=== PATIENT | female | born 1980 | race Caucasian/White ===

== ENCOUNTER 2020-08-09 08:00 | Outpatient (CLI) | payer BC, OTHER ==
[2020-08-09 12:16] LABS: ALBUMIN/GLOBULIN RATIO 1.7 (1.0-2.2); ALKALINE PHOSPHATASE 30 IU/L (42-121); ALT ALANINE AMINOTRANSFERASE 26 IU/L (10-60); AST ASPARTATE AMINOTRANSFERASE 18 IU/L (10-42); BASOPHILS % (AUTO) 0.5 %; BILIRUBIN,TOTAL 0.6 mg/dL (0.2-1.0); BUN - BLOOD UREA NITROGEN 17 mg/dL (6-20); CALCIUM 9.6 mg/dL (8.5-10.3); CARBON DIOXIDE - CO2 25 mmol/L (21-32); CHLORIDE 102 mmol/L (101-111); CHOL/HDL RATIO 4.1 (<4.4); CHOLESTEROL 357 mg/dL; CREATININE 0.8 mg/dL (0.4-1.0); EOSINOPHILS # (AUTO) 0.2 10^3/uL (0.0-0.7); EOSINOPHILS % (AUTO) 2.5 %; GLUCOSE 105 mg/dL (70-100); HDL CHOLESTEROL 88 mg/dL; LDL CHOLESTEROL,CALCULATED 260 mg/dL; LYMPHOCYTES # (AUTO) 2.2 10^3/uL (1.5-3.5); LYMPHOCYTES % (AUTO) 34.3 %; MEAN CORPUSCULAR HEMOGLOBIN 30.7 pg (27.0-31.0); MEAN CORPUSCULAR HGB CONC 32.2 g/dL (32.0-36.0); MEAN CORPUSCULAR VOLUME 95.3 fL (81.0-99.0); MEAN PLATELET VOLUME 10.4 fL (7.9-10.8); MONOCYTES # (AUTO) 0.5 10^3/uL (0.0-1.0); MONOCYTES % (AUTO) 7.8 %; NEUTROPHILS # (AUTO) 3.5 10^3/uL (1.5-6.6); NEUTROPHILS % (AUTO) 54.7 %; PLT - PLATELET COUNT 317 10^3/uL (130-450); RED BLOOD COUNT 4.24 10^6/uL (4.20-5.40); RED CELL DISTRIBUTION WIDTH 13.2 % (12.0-15.0); VLDL CHOLESTEROL 9 mg/dL; WHITE BLOOD COUNT 6.4 x10^3/uL (4.8-10.8)
== END 2020-08-09 08:01 | disposition home or self-care (01) ==
LOC: LAB.WCP 08:00
PROVIDERS: ATTEND Nurse Practitioner Family
DX: I10 Essential (primary) hypertension (principal); E78.5 Hyperlipidemia, unspecified; D49.2 Neoplasm of unspecified behavior of bone, soft tissue, and skin
CPT/HCPCS: 36415; 80053; 80061; 83721; 84443; 85025

== ENCOUNTER 2020-08-21 17:59 | Outpatient (CLI) | payer OTHER ==
--- NOTE | 2020-08-22 09:35 | Ultrasound Report ---
PROCEDURE: Pelvic w/Transvaginal INDICATIONS: PELVIC PAIN TECHNIQUE: Real-time scanning was performed of the pelvic organs, with image documentation. Additional endovagi nal scanning was necessary due to incomplete visualization of the adnexal and endometrial structures by transabdominal scanning. COMPARISON: None. FINDINGS: No pathologic free abdominal or pelvic fluid. Uterus: Uterus is anteverted and normal in size at 8.0 x 3.3 x 5.1 cm. The endometrium measures 7 m m in combined thickness. Slight arcuate uterine morphology. No myometrial mass. A few small nabothia n cysts are present in the cervix. Ovaries: The right ovary measures 4.6 x 2.1 x 2.5 cm for a volume of 12 cc. The left ovary measures 2.2 x 1.8 x 1.7 cm for a volume of 3.8 cc. The right ovary contains a round, thin-walled, partially e xophytic, hypoechoic mass measuring 2.0 x 2.0 x 2.2 cm. Nonpulsatile color flow present within the ma ss. IMPRESSION: 1. Normal uterus and left ovary. 2. 2.2 cm hypoechoic right ovarian mass suggestive of hemorrhagic corpus luteum, endometrioma, less l ikely atypical dermoid. Follow-up in 6-8 weeks at a different point in the patient's menstrual cycle is recommended. Reviewed by: Lary Santacruz MD on 08/22/2020 9:33 AM PST Approved by: Lary Santacruz MD on 08/22/2020 9:33 AM PST Station ID: [id number]
== END 2020-08-21 18:00 | disposition home or self-care (01) ==
LOC: DI 17:59
PROVIDERS: ATTEND Nurse Practitioner Family
DX: N83.9 Noninflammatory disorder of ovary, fallopian tube and broad ligament, unspecified (principal)

== ENCOUNTER 2023-01-25 08:50 | Outpatient (CLI) | payer OTHER ==
[2023-01-25 09:22] LABS: BASOPHILS % (AUTO) 0.5 %; EOSINOPHILS # (AUTO) 0.2 10^3/uL (0.0-0.7); EOSINOPHILS % (AUTO) 4.2 %; HCT - HEMATOCRIT 39.1 % (37.0-47.0); HGB - HEMOGLOBIN 12.7 g/dL (12.0-16.0); LYMPHOCYTES # (AUTO) 2.1 10^3/uL (1.5-3.5); LYMPHOCYTES % (AUTO) 36.8 %; MEAN CORPUSCULAR HEMOGLOBIN 30.1 pg (27.0-31.0); MEAN CORPUSCULAR HGB CONC 32.5 g/dL (32.0-36.0); MEAN CORPUSCULAR VOLUME 92.7 fL (81.0-99.0); MEAN PLATELET VOLUME 9.8 fL (7.9-10.8); MONOCYTES # (AUTO) 0.5 10^3/uL (0.0-1.0); MONOCYTES % (AUTO) 8.4 %; NEUTROPHILS # (AUTO) 2.9 10^3/uL (1.5-6.6); NEUTROPHILS % (AUTO) 50.1 %; PLT - PLATELET COUNT 314 10^3/uL (130-450); RED BLOOD COUNT 4.22 10^6/uL (4.20-5.40); RED CELL DISTRIBUTION WIDTH 13.2 % (12.0-15.0); WHITE BLOOD COUNT 5.7 x10^3/uL (4.8-10.8)
[2023-01-25 09:36] LABS: ALBUMIN 4.4 g/dL (3.2-5.5); ALBUMIN/GLOBULIN RATIO 1.5 (1.0-2.2); ALKALINE PHOSPHATASE 51 IU/L (42-121); ALT ALANINE AMINOTRANSFERASE 14 IU/L (10-60); AMYLASE 30 U/L (28-100); AST ASPARTATE AMINOTRANSFERASE 13 IU/L (10-42); BILIRUBIN,TOTAL 0.4 mg/dL (0.2-1.0); BUN - BLOOD UREA NITROGEN 7 mg/dL (6-20); CALCIUM 9.4 mg/dL (8.5-10.3); CARBON DIOXIDE - CO2 26 mmol/L (21-32); CHLORIDE 105 mmol/L (101-111); CHOL/HDL RATIO 3.3 (<4.4); CHOLESTEROL 211 mg/dL; CREATININE 0.7 mg/dL (0.6-1.3); GFR - MDRD 91 (>89); GLUCOSE 99 mg/dL (74-104); HDL CHOLESTEROL 63 mg/dL; LDL CHOLESTEROL,CALCULATED 124 mg/dL; LIPASE 14 U/L (11-82); POTASSIUM 3.8 mmol/L (3.5-4.5); SODIUM 136 mmol/L (135-145); TOTAL PROTEIN 7.4 g/dL (6.4-8.9); TRIGLYCERIDES 120 mg/dL (48-352); VLDL CHOLESTEROL 24 mg/dL
== END 2023-01-25 08:51 | disposition home or self-care (01) ==
LOC: LAB 08:50
PROVIDERS: ATTEND Registered Nurse
DX: E78.00 Pure hypercholesterolemia, unspecified (principal); M54.6 Pain in thoracic spine
CPT/HCPCS: 36415; 80053; 80061; 82150; 83690; 83721; 85025

== ENCOUNTER 2023-01-29 07:35 | Outpatient (CLI) | payer OTHER ==
--- NOTE | 2023-01-29 11:30 | CT Report ---
PROCEDURE: ABDOMEN/PELVIS W INDICATIONS: RIGHT FLANK PAIN CONTRAST: 100ml omni 300 TECHNIQUE: After the administration of oral and intravenous contrast, 5 mm thick sections acquired from the diap hragms to the symphysis. 5 mm thick coronal and sagittal reformats were acquired. For radiation dos e reduction, the following was used: automated exposure control, adjustment of mA and/or kV accordin g to patient size. COMPARISON: CT 01/11/2023 FINDINGS: Image quality: Excellent. Lung bases and heart: Unremarkable. Liver: Subcentimeter hypoattenuating lesion in segment 6 of the liver, too small to characterize by C T (series 2, image 34). Gallbladder and biliary tree: No radiopaque stones or wall thickening. No biliary dilation. Spleen: No splenomegaly. Pancreas: No pancreatic ductal dilation. Adrenals: No adrenal nodule. Kidneys and ureters: No hydronephrosis. No renal cystic lesion which requires follow up. No solid mas s. Bowel and peritoneum: No bowel distension. No pathologic free fluid. Lymph nodes: No central or retroperitoneal adenopathy. Vessels: No infrarenal aortic aneurysm. PELVIS Reproductive organs: IUD within the central uterus. Bladder: No abnormal wall thickening, accounting for underdistension. Pelvic lymph nodes: No pelvic adenopathy by size criteria. Bones: No aggressive osseous abnormality. Other: No significant ventral or inguinal hernia. IMPRESSION: No findings to explain the patient's right flank pain. No nephrolithiasis. No hydronephrosis. Symmetr ic ovaries. Subcentimeter hypoattenuating lesion in segment 6 of the liver, too small to characterize by CT but p robably a small cyst. Reviewed by: Nam Zarate on 01/29/2023 11:28 AM PDT Approved by: Nam Zarate on 01/29/2023 11:28 AM PDT Station ID: [id number]
[2023-01-29] MEDS ORDERED: iohexoL-300 100 ML VIAL IVP ONE (12:02)
[2023-01-29] MEDS ORDERED: BARIUM SULFATE 450 ML BOTTLE PO ONE (12:02)
== END 2023-01-29 07:36 | disposition home or self-care (01) ==
LOC: DI 07:35
PROVIDERS: ATTEND Urology
DX: K76.9 Liver disease, unspecified (principal); R10.9 Unspecified abdominal pain; R31.21 Asymptomatic microscopic hematuria
CPT/HCPCS: 74177; A9270; Q9967

== ENCOUNTER 2023-02-09 13:32 | Outpatient (CLI) | payer OTHER ==
--- NOTE | 2023-02-09 19:35 | XRAY Report ---
PROCEDURE: Thoracic Spine 2 View INDICATIONS: ACUTE RIGHT SIDED THORACIC BACK PAIN TECHNIQUE: 2 views of the thoracic spine were acquired. COMPARISON: None. FINDINGS: Bones: No fractures or dislocations. No suspicious bony lesions. 12 pairs of ribs are noted, and a ppear intact where visualized. Soft tissues: No paravertebral stripe thickening. IMPRESSION: Unremarkable thoracic spine radiographs Reviewed by: Yanick Griffin MD on 02/09/2023 6:33 PM AKDT Approved by: Yanick Griffin MD on 02/09/2023 6:33 PM AKDT Station ID: [id number]
--- NOTE | 2023-02-09 19:36 | XRAY Report ---
PROCEDURE: Lumbar Spine 2 View INDICATIONS: ACUTE RIGHT SIDED THORACIC BACK PAIN TECHNIQUE: 2 views of the lumbar spine were acquired. COMPARISON: None. FINDINGS: Bones: 5 dif-yts-vivlflo vertebrae are present. There is normal bony alignment. No vertebral body compression fractures. No suspicious bony lesions. Disc spaces narrowing noted in the lower lumbar spine with hypertrophic facet joints and grade 1 ante rior spondylolisthesis at L3-4 Soft tissues: Overlying bowel gas pattern is normal. No suspicious soft tissue calcifications. 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
== END 2023-02-09 13:33 | disposition home or self-care (01) ==
LOC: DI 13:32
PROVIDERS: ATTEND Registered Nurse
DX: M47.816 Spondylosis without myelopathy or radiculopathy, lumbar region (principal); M51.36 Other intervertebral disc degeneration, lumbar region

== ENCOUNTER 2023-03-26 07:28 | Day surgery (SDC) | payer OTHER ==
[~2023-03-26 07:28] MED LIST: BUPIVACAINE 0.5% PF 10 ML VIAL ONE
[2023-03-26] MEDS ORDERED: LACTATED RINGERS 1,000 ML IV ONE ×2 (07:37→11:10)
[2023-03-26] MEDS ORDERED: ceFAZolin 2 GM VIAL ONE (07:40)
[2023-03-26 08:09] LABS: HCG UR QUAL NEGATIVE
[2023-03-26] MEDS ORDERED: fentaNYL 100 MCG/2 ML VIAL ONE ×2 (08:29→10:15)
[2023-03-26] MEDS ORDERED: MIDAZOLAM 2 MG/2 ML VIAL ONE (08:29)
[2023-03-26] MEDS ORDERED: ROCURONIUM 50 MG/5 ML VIAL ONE ×2 (08:30→10:33)
[2023-03-26] MEDS ORDERED: LIDOCAINE-PF 2% 10 ML AMP SUBQ ONE (08:30)
[2023-03-26] MEDS ORDERED: PROPOFOL 200 MG/20 ML VIAL IVP ONE (08:30)
[2023-03-26 08:37] LABS: ALBUMIN 4.4 g/dL (3.2-5.5); ALBUMIN/GLOBULIN RATIO 1.8 (1.0-2.2); BILIRUBIN,TOTAL 0.5 mg/dL (0.2-1.0); CALCIUM 9.4 mg/dL (8.5-10.3); CREATININE 0.6 mg/dL (0.6-1.3); POTASSIUM 3.8 mmol/L (3.5-4.5); TOTAL PROTEIN 6.9 g/dL (6.4-8.9)
[2023-03-26] MEDS ORDERED: METOCLOPRAMIDE 10 MG/2 ML VIAL IVP PRN (08:37)
[2023-03-26] MEDS ORDERED: NALOXONE 0.4 MG/ML VIAL IVP PRN (08:37)
[2023-03-26] MEDS ORDERED: HYDROmorphone 0.5 MG/0.5 ML SYRINGE IVP PRN (08:37)
[2023-03-26] MEDS ORDERED: fentaNYL 100 MCG/2 ML VIAL IVP PRN (08:37)
[2023-03-26] MEDS ORDERED: ONDANSETRON 4 MG/2 ML VIAL IVP PRN (08:37)
[2023-03-26] MEDS ORDERED: MORPHINE 2 MG/ML CARPUJECT IVP PRN (08:37)
[2023-03-26] MEDS ORDERED: ATROPINE ABBOJECT 1 MG/10 ML SYRINGE IVP PRN (08:37)
[2023-03-26] MEDS ORDERED: ePHEDrine 50 MG/ML VIAL IVP PRN (08:37)
--- NOTE | 2023-03-26 08:37 | ANESTHESIA ---
Pre-Anesthesia VS, & Labs - Diagnosis acalculus cholecystitis - Procedure laparoscpic cholecystectomy Vital Signs: Temp Pulse Resp BP Pulse Ox O2 Flow Rate 36.1 C L 88 18 138/90 H 98 03/26/23 07:48 03/26/23 07:48 03/26/23 07:48 03/26/23 07:48 03/26/23 07:48 Height: 5 ft 8 in Weight (kg): 103.1 kg Body Mass Index: 34.5 BMI Classification: Obese - NPO >8 hours - Is Patient ?: No - Lab Results Lab results reviewed: Yes Home Medications and Allergies Home Medications: Ambulatory Orders Atorvastatin [Lipitor] 10 mg PO DAILY 03/21/23 Sertraline [Zoloft] 50 mg PO DAILY 03/21/23 traMADol [Ultram] 50 mg PO Q4-6H 03/21/23 Atorvastatin [Lipitor] 10 mg PO DAILY 03/21/23 Sertraline [Zoloft] 50 mg PO DAILY 03/21/23 traMADol [Ultram] 50 mg PO Q4-6H 03/21/23 Allergies/Adverse Reactions: Allergies Allergy/AdvReac Type Severity Reaction Status Date / Time heparin Allergy migraine, Verified 03/21/23 15:17 vomiting Anes History & Medical History - Anesthetic History Anesthesia Complications: reports: No previous complications Family history of Anesthesia Complications: Denies Family history of Malignant Hyperthermia: Denies - Medical History Cardiovascular: reports: High cholesterol, Deep vein thrombosis (L leg) Pulmonary: reports: None Gastrointestinal: reports: Cholelithiasis Urinary: reports: None Musculoskeletal: reports: None Endocrine/Autoimmune: reports: None Skin: reports: Other Psychosocial: reports: No issues indicated History of Cancer?: No - Surgical History Dermatologic: reports: Skin cancer surgery Exam General: Alert, Oriented x3, Cooperative Dental: WNL Mouth Openin Fingerbreadth Neck Mobility: Normal Mallampati classification: II Thyromental Distance: 4-6 cm Respiratory: Lungs clear, Normal breath sounds, No respiratory distress Cardiovascular: Regular rate Neurological: Normal speech Mental/Cognitive Status: Alert/Oriented X3, Normal for patient Cognitive Status: Within normal limits Plan Anesthesia Type: General Consent for Procedure(s) Verified and Reviewed: Yes Code Status: Attempt Resuscitation ASA classification: 2-Mild systemic disease Is this case an emergency?: No
--- NOTE | 2023-03-26 08:40 | ANESTHESIA ---
Pre-Anesthesia VS, & Labs Vital Signs: Temp Pulse Resp BP Pulse Ox O2 Flow Rate 36.1 C L 88 18 138/90 H 98 03/26/23 07:48 03/26/23 07:48 03/26/23 07:48 03/26/23 07:48 03/26/23 07:48 Height: 5 ft 8 in Weight (kg): 103.1 kg Body Mass Index: 34.5 BMI Classification: Obese Home Medications and Allergies Home Medications: Ambulatory Orders Atorvastatin [Lipitor] 10 mg PO DAILY 03/21/23 Sertraline [Zoloft] 50 mg PO DAILY 03/21/23 traMADol [Ultram] 50 mg PO Q4-6H 03/21/23 Atorvastatin [Lipitor] 10 mg PO DAILY 03/21/23 Sertraline [Zoloft] 50 mg PO DAILY 03/21/23 traMADol [Ultram] 50 mg PO Q4-6H 03/21/23 Allergies/Adverse Reactions: Allergies Allergy/AdvReac Type Severity Reaction Status Date / Time heparin Allergy migraine, Verified 03/21/23 15:17 vomiting Anes History & Medical History - Medical History Cardiovascular: reports: High cholesterol, Deep vein thrombosis Pulmonary: reports: None Gastrointestinal: reports: Cholelithiasis Urinary: reports: None Musculoskeletal: reports: None Endocrine/Autoimmune: reports: None Skin: reports: Other - Surgical History Dermatologic: reports: Skin cancer surgery
[2023-03-26] MEDS ORDERED: LACTATED RINGERS 1,000 ML IV SCH (09:00)
[2023-03-26] MEDS ORDERED: GLYCOPYRROLATE 1 MG/5 ML VIAL ONE (09:46)
[2023-03-26] MEDS ORDERED: BUPIVACAINE 0.5% PF 30 ML VIAL SUBQ ONE (09:51)
[2023-03-26] MEDS ORDERED: DEXAMETHASONE 4 MG/ML VIAL ONE (09:58)
[2023-03-26] MEDS ORDERED: ONDANSETRON 4 MG/2 ML VIAL ONE (09:58)
[2023-03-26] MEDS ORDERED: ACETAMINOPHEN 1,000 MG/100 ML 1,000 MG/100 ML BAG IV ONE (09:59)
[2023-03-26] MEDS ORDERED: KETOROLAC 30 MG/ML VIAL ONE (10:41)
[2023-03-26] MEDS ORDERED: SUGAMMADEX 200 MG/2 ML VIAL IVP ONE (10:43)
[2023-03-26] MEDS ORDERED: HYDROmorphone 1 MG/ML CARPUJECT ONE (11:22)
[2023-03-26] MEDS: HYDROmorphone 1 MG/ML CARPUJECT ONE ×2 (11:33→11:43)
--- NOTE | 2023-03-26 11:35 | OPERATIVE REPORT ---
Operative Report - General Procedure Date: 03/26/23 Planned Procedure: Laparoscopic cholecystectomy Pre-Op Diagnosis: Acalculus cholecystitis Procedure Performed: Calculus cholecystitis (there were stones when I opened the gallbladder) Post Op Diagnosis: Calculus cholecystitis - Procedure Note Primary Surgeon: Josef Meade MD Anesthesia Provider: Fermín Rosas CRNA Anesthesia Technique: General ET tube, Local (30 mL of half percent Marcaine plain) IV Fluids (mL): 1,400 Estimated Blood Loss (mL): 10 Drain/Tube Type: Other (None.) Indications: Persistent and increasingly symptomatic right upper quadrant pain Complications: Small hepatic tear on retraction of gallbladder (photographed) - Other Other Information/Narrative: After verbal and written informed consent was obtained detailing the operation, the alternatives to the operation including no operation, risks of infection, bleeding requiring transfusion with its risks, nerve injury, and and after I met with the patient confirming the surgery, the patient was brought to the operative suite and placed supine on the operating table. Great care was taken to avoid pressure points to prevent pressure necrosis or nerve injury. Monitoring devices were applied along with TEDs and pneumatic compressive stockings (to prevent DVT). The patient received preoperative antibiotics for surgical prophylaxis. Fermín Rosas CRNA sedated and anesthetized the patient for the entire procedure. The patient was prepped and draped in usual sterile manner. A "time in" then confirmed that the patient was identified with 3 identifiers (name, birthdate, and medical record number), the history and physical was in the chart, the signed consent confirming the procedure was in the chart, the patient was in the correct position, the aforementioned prophylactic measures were in place were given, we had the correct personnel and equipment to complete the procedure and that anesthesia, and the surgical team was given an opportunity to express any concerns. With the agreement of everyone in the room, we proceeded with the operation. The initial incision was at the umbilicus and dissection to the linea alba was completed using blunt dissection. The linea alba was grasped with a Coreen and incised. In a similar manner the peritoneum was grasped and incised using Metzenbaum scissors. In this location, a 12 mm blunt tipped, balloon tipped port was placed and the balloon was inflated to keep the port in position. The abdominal cavity was insufflated with carbon dioxide to a steady-state pressure of 15 mmHg. 3 additional 5 mm ports were placed in standard locations for laparoscopic cholecystectomy (subxiphoid and 2 right subcostal) under direct vision of the 30 degree laparoscope and without incident. The patient was then placed in reverse Trendelenburg position and was rotated slightly to their left. The gallbladder fundus was grasped with an atraumatic grasper and retracted aguiar periorly and slightly laterally. With minimal retraction a small liver tear became apparent medial to the gallbladder. This was not bleeding but the edge of it was cauterized out of an abundance of caution. This portion of the liver was densely adherent to the stomach and these adhesions were taken down using Bovie electrocautery. Multiple adhesions had to be taken down by blunt and sharp dissection along with electrocautery. Eventually, I identified the infundibulum and this was then grasped and retracted superiorly and laterally. Dissection was then begun at the angle of Calot. The cystic duct and (slightly medially and posteriorly), cystic artery were clearly identified. The critical view was obtained and a photograph taken. 2 clips proximally and one clip distally were used to control both the cystic duct and cystic artery. The clips were carefully placed to avoid occluding the juncture with the common bile duct. Both the cystic duct and then the cystic artery were then transected with laparoscopic priscila. The gallbladder was then removed from its fossa in a retrograde manner using electrocautery. With the 30 degree 5 mm scope in the subxiphoid position, the gallbladder was placed in an Endo Catch bag to be extracted through the 12 mm port site. I irrigated the right upper quadrant with liter of warm sterile saline and the area was aspirated dry. I inspected the gallbladder fossa and there was no bleeding or bile leak. Clips on the cystic duct and cystic artery appeared to be secure. I briefly visually explored the abdomen. There was no other evidence of overt pathology. I injected the port sites at the peritoneal, fascial, and skin levels under direct vision with 0.5% Marcaine. All ports and the Endo Catch containing the gallbladder were removed. Following gallbladder removal, the remaining carbon dioxide was expelled from the abdomen. The fascia the umbilicus was approximated using 2 [id number] suture. The skin at each port site was approximated using a subcuticular 4-0 Monocryl. The skin was prepped with benzoin and Steri-Strips were applied. At this point a "timeout" was performed that confirmed that all counts were correct, the procedure that was performed, the blood loss, the IV fluids administered, the patient's condition and any concerns of the operating team had. Dressings were then applied. Having tolerated the procedure well, the patient was extubated and taken to recovery room in good and stable condition. The plan is for outpatient discharge when the patient is adequately recovered. CPT 23725 This document was created in part using voice recognition technology. Because of the inherent limitations of the system, occasional same sounding word substitutions and grammatical errors do occur and persist despite proofreading. Please read this document for context.
[2023-03-26 12:38] VITALS: O2SAT 99
[2023-03-26] MEDS ORDERED: SCOPOLAMINE PATCH TOP SCH (13:00)
[2023-03-26] MEDS ORDERED: HYDROcod/ACETAM 5/325 MG TABLET PO STA (13:47)
[2023-03-26] MEDS ORDERED: HYDROcod/ACETAM 5/325 MG TABLET ONE (14:02)
[2023-03-26 14:42] VITALS: BP 126/66
--- NOTE | 2023-03-26 14:43 | ANESTHESIA POST OP EVALUATION ---
Anesthesia Post Eval - Post Anesthesia Eval Vitals: Last Vital Signs Temp 36.3 C L 03/26/23 14:35 Pulse 60 03/26/23 14:35 Resp 14 03/26/23 14:35 BP 126/66 03/26/23 14:35 Pulse Ox 99 03/26/23 14:35 O2 Flow Rate CV Function Including HR & BP: Stable Pain Control: Satisfactory Nausea & Vomiting: Addtional Therapies Ordered (treated) Mental Status: Baseline Respiratory Status: Airway Patent Hydration Status: Satisfactory Anesthesia Complications: None
== END 2023-03-26 07:29 | disposition home or self-care (01) ==
LOC: SDS 07:28
PROVIDERS: ATTEND Surgery
PROC: 0FT44ZZ Resection of Gallbladder, Percutaneous Endoscopic Approach (ICD-10-PCS; principal; 2023-03-26 08:30)
DX: K80.10 Calculus of gallbladder with chronic cholecystitis without obstruction (principal); K91.71 Accidental puncture and laceration of a digestive system organ or structure during a digestive system procedure; Y65.8 Other specified misadventures during surgical and medical care; Y92.234 Operating room of hospital as the place of occurrence of the external cause; E66.9 Obesity, unspecified; Z32.02 Encounter for pregnancy test, result negative; Z68.34 Body mass index [BMI] 34.0-34.9, adult
CPT/HCPCS: 47562; 80053; 81025; A9270; J0131; J1170; J3490; J7120